=== PATIENT | female | born 1990 | race American Indian/Alaskan Native ===

== ENCOUNTER 2019-05-20 06:12 | Observation (INO) | payer SELFPAY ==
[2019-05-20] MEDS ORDERED: ZOFRAN IV ONE (06:29)
[2019-05-20] MEDS ORDERED: NACL 0.9% 1000 ML 1,000 ML IV ONE (06:29)
--- NOTE | 2019-05-20 06:34 | Emergency Department Report ---
ED General Adult HPI - General Chief complaint: Abdominal Pain Stated complaint: SEIZURES WITH Time Seen by Provider: 05/20/19 06:22 Source: patient, EMS (verbal report received from EMS. EMS records not available at the time of chart dictation.), RN notes reviewed Mode of arrival: Stretcher Limitations: Other (patient laying in stretcher and appears to be anxious, and is a poor historian) - History of Present Illness Initial comments: This is a 29-year-old female. This patient is not known to this provider previously. Reportedly, this is her second left eye and . Reportedly, the patient has a history of "seizures,", only with . The patient indicates she was seen at [facility] yesterday, and reports having had an ultrasound yesterday. Apparently, the patient had 11 separate convulsive episodes today, nontraumatic, while in bed, I demonstrates with EMS. Apparently, her significant other contacted 911. EMS reports that the patient was shaking in the field, however, they report that the shaking stops when the patient closed her eyes. In addition, apparently in the field, the patient will respond to voluntary commands. In the emergency room, the patient complains of mild diffuse abdominal cramping. She has positive nausea. The patient states that she does not have a headache, neck pain, chest pain, shortness of breath. The patient states she is not homicidal or suicidal. The patient reports she does not use recreational drugs. The patient reports that she is not feeling stressed out. The patient states that she only has "seizures" during . As per patient's significant other, she had MRI, EEG done at [facility], 5 years ago. She does not currently have an PAPER CUP MACHINE TENDER. She is not seeing a high offender job retention specialist, and she is not taking any seizure medicines at this time.. -: Sudden Location: pelvis Quality: aching Consistency: intermittent Improves with: none Worsens with: none Associated Symptoms: nausea/vomiting, seizure - Related Data Home Medications Medication Instructions Recorded Confirmed Last Taken No Known Home Medications [No 05/20/19 05/20/19 Unknown Reported Home Medications] Allergies Allergy/AdvReac Type Severity Reaction Status Date / Time No Known Allergies Allergy Unverified 05/20/19 06:49 ED Review of Systems ROS: Stated complaint: SEIZURES WITH Other details as noted in HPI Constitutional: malaise. denies: fever Eyes: denies: eye discharge ENT: denies: epistaxis Respiratory: denies: cough Cardiovascular: denies: syncope Gastrointestinal: vomiting Genitourinary: denies: dysuria Musculoskeletal: denies: back pain Skin: denies: lesions Neurological: weakness Psychiatric: denies: suicidal thoughts ED Past Medical Hx - Medications Home Medications: Home Medications Medication Instructions Recorded Confirmed Last Taken Type No Known Home Medications [No 05/20/19 05/20/19 Unknown History Reported Home Medications] ED Physical Exam - General General appearance: alert, anxious, in distress - Head Head exam: Present: atraumatic, normocephalic - Eye Eye exam: Present: normal appearance, PERRL, EOMI - ENT ENT exam: Present: normal exam, normal orophraynx, mucous membranes moist, normal external ear exam - Neck Neck exam: Present: normal inspection, full ROM. Absent: tenderness, meningismus - Respiratory Respiratory exam: Present: normal lung sounds bilaterally. Absent: respiratory distress - Cardiovascular Cardiovascular Exam: Present: normal rhythm, tachycardia, normal heart sounds. Absent: systolic murmur, diastolic murmur, rubs, gallop - GI/Abdominal GI/Abdominal exam: Present: soft. Absent: distended, tenderness, guarding, rebound, rigid, pulsatile mass - Extremities Exam Extremities exam: Present: normal inspection, full ROM, other (2+ pulses noted in the bilateral upper, lower extremities. There is no long bony tenderness. The pelvis is stable. Muscular compartments are soft. There is no redness, pus, streaking or crepitus noted.). Absent: pedal edema, joint swelling, calf tenderness - Back Exam Back exam: Present: normal inspection, full ROM. Absent: tenderness, CVA tenderness (R), CVA tenderness (L), paraspinal tenderness, vertebral tenderness - Neurological Exam Neurological exam: Present: alert, oriented X3, other (Extraocular movements are intact bilaterally. There is no facial droop. The tongue is midline. Patient speaking in full complete sentences. There is no dysphonia. Hearing is grossly intact bilaterally. Shoulder shrug is intact bilaterally. 5/5 strength bilateral upper, lower extremities. Sensation is intact to light touch bilateral upper, lower extremities.). Absent: motor sensory deficit - Psychiatric Psychiatric exam: Present: anxious - Skin Skin exam: Present: warm, dry, intact, normal color. Absent: rash ED Course Vital Signs 05/20/19 05/20/19 05/20/19 06:18 06:20 06:22 Temperature 98.9 F Pulse Rate 96 H 85 93 H Respiratory 24 8 L 20 Rate Blood Pressure 118/62 Blood Pressure [Left] O2 Sat by Pulse 99 95 Oximetry 05/20/19 05/20/19 05/20/19 06:30 06:41 06:51 Temperature Pulse Rate 83 89 71 Respiratory 11 L 20 12 Rate Blood Pressure 110/73 110/73 124/78 Blood Pressure [Left] O2 Sat by Pulse 96 99 97 Oximetry 05/20/19 05/20/19 05/20/19 07:01 07:11 07:21 Temperature Pulse Rate 84 86 79 Respiratory 15 12 18 Rate Blood Pressure 124/78 86/66 86/66 Blood Pressure [Left] O2 Sat by Pulse 96 98 98 Oximetry 05/20/19 05/20/19 05/20/19 07:30 07:41 07:51 Temperature Pulse Rate 67 66 75 Respiratory 9 L 22 11 L Rate Blood Pressure 115/77 115/77 86/66 Blood Pressure [Left] O2 Sat by Pulse 98 98 99 Oximetry 05/20/19 05/20/19 05/20/19 08:01 08:11 08:21 Temperature Pulse Rate 73 92 H 82 Respiratory 12 13 18 Rate Blood Pressure 86/66 86/66 113/71 Blood Pressure [Left] O2 Sat by Pulse 99 100 100 Oximetry 05/20/19 05/20/19 05/20/19 08:31 08:32 08:41 Temperature Pulse Rate 69 88 84 Respiratory 18 16 20 Rate Blood Pressure 113/71 135/103 Blood Pressure 113/71 [Left] O2 Sat by Pulse 98 96 100 Oximetry 05/20/19 08:51 Temperature Pulse Rate 69 Respiratory 15 Rate Blood Pressure 114/78 Blood Pressure [Left] O2 Sat by Pulse 98 Oximetry - Reevaluation(s) Reevaluation #1: 05/20/19 06:34 Differential diagnosis, including but not limited to: Seizure, pseudoseizure, , electrolyte derangement, occult cannabis use Assessment and plan: 29-year-old female who reportedly has history of seizures only while . However, she indicates she is not taking antiepileptic drug therapy, and to her history and physical, her convulsions and movements appear to be voluntary and controlled in nature. Suspect conversion disorder. The patient is afebrile with reassuring vital signs, and protecting her airway at this time. She has a nonfocal motor and neurologic examination, and in my pain does not require CT scan of the brain at this time. We will check basic laboratory studies, ultrasound, urinalysis, urine drug screen, EKG, and obtain neurology consultation. Reportedly, the patient had 11 CONVULSIVE events prior to arrival to the emergency room. Reevaluation #2: 05/20/19 06:44 Ultrasound confirms intrauterine , heart rate noted. Discussed with neurology on-call, Dr. Vogel, recommends admission to the hospital for repeat MRI, EEG. Recommends no initiation of anticonvulsant therapy at this time, which I agree with. Recommends inpatient neurology consult, which I will defer to the inpatient team. Patient does not have an acute obstetrics emergency at this time, however, we will discuss with PAPER CUP MACHINE TENDER on-call. Reevaluation #3: 05/20/19 07:17 Discussed with obstetrics section plotter operator, Dr. Reed, who states that [facility] is available for consultation, and indicates that Dr. Peng may be contacted if inpatient team has any questions pertaining to patient's first trimester management. Reevaluation #4: 05/20/19 08:12 Patient had a convulsive event, terminated with Benadryl. Hospital physician, Dr. Navarro to admit ED Medical Decision Making - Lab Data Result diagrams: 05/20/19 07:06 05/20/19 07:06 Vital Signs 05/20/19 06:22 Temperature 98.9 F Pulse Rate 93 H Respiratory 20 Rate Blood Pressure 118/62 O2 Sat by Pulse 95 Oximetry - EKG Data -: EKG Interpreted by Nd EKG shows normal: sinus rhythm, axis, intervals, QRS complexes, ST-T waves - EKG Data When compared to previous EKG there are: previous EKG unavailable 05/20/19 06:45 Sinus rhythm, 71 bpm, normal axis, QTC within normal limits, normal EKG, motion artifact, there is no prior for comparison, the EKG is not consistent with ST elevation myocardial infarction. - Radiology Data Radiology results: pending, report reviewed, image reviewed Ordering Physician: ELIUD NUNEZ MD Date of Service: 05/20/19 Procedure(s): US OB <= 14 weeks fetus Accession Number(s): [id number] cc: ELIUD NUNEZ MD OB ultrasound. 05/20/2019. HISTORY: . Seizure. FINDINGS: Imaging was performed transabdominally. The uterus measures 8.4 x 5.9 x 7.2 cm. A single viable intrauterine is dated 7 weeks 0 days. heart tones are 155 bpm. No abnormality is identified. Right ovary measures 1.8 x 1.3 x 1.4 cm. Left ovary measures 2.1 x 1.4 x 1.9 cm. Both ovaries contain flow. IMPRESSION: Early viable intrauterine . Signer Name: Rio Sainz MD Signed: 05/20/2019 7:05 AM Workstation Name: [id number] Transcribed By: ES Dictated By: Rio Sainz MD Electronically Authenticated By: Rio Sainz MD Signed Date/Time: 05/20/19 0705 Critical care attestation.: If time is entered above; I have spent that time in minutes in the direct care of this critically ill patient, excluding procedure time. ED Disposition Clinical Impression: , Convulsive disorder Disposition: [id number] OP ADMIT IP TO THIS HOSP Is pt being admited?: Yes Does the pt Need Aspirin: No Condition: Good
--- NOTE | 2019-05-20 07:09 | Ultrasound Report ---
OB ultrasound. 05/20/2019. HISTORY: . Seizure. FINDINGS: Imaging was performed transabdominally. The uterus measures 8.4 x 5.9 x 7.2 cm. A single vi able intrauterine is dated 7 weeks 0 days. heart tones are 155 bpm. No abnormality is identified. Right ovary measures 1.8 x 1.3 x 1.4 cm. Left ovary measures 2.1 x 1.4 x 1.9 cm. Both ovaries contain flow. IMPRESSION: Early viable intrauterine . Signer Name: Rio Sainz MD Signed: 05/20/2019 7:05 AM Workstation Name: [id number]
[2019-05-20 07:29] LABS: Hematocrit 36.9 % (30.3-42.9); Hemoglobin 12.9 gm/dl (10.1-14.3); Mean Corpuscular HGB Conc 35 % (30-34); Mean Corpuscular Volume 94 fl (79-97); Platelet Count 265 K/mm3 (140-440); Red Blood Count 3.94 M/mm3 (3.65-5.03); Red Cell Distribution Width 13.1 % (13.2-15.2)
[2019-05-20] MEDS ORDERED: BENADRYL ONE (07:42)
[2019-05-20 07:44] LABS: Alanine Aminotransferase 12 units/L (7-56); BUN/Creatinine Ratio 18; Blood Urea Nitrogen 9 mg/dL (7-17); Calcium 8.8 mg/dL (8.4-10.2); Hemolysis Index 3
[2019-05-20] MEDS ORDERED: BENADRYL IV ONE (07:46)
[2019-05-20 08:08] LABS: Bacteria,Urine 1+ /HPF (Negative); Bilirubin,Urine NEG (Negative); Blood,Urine NEG (Negative); Color,Urine Yellow (Yellow); Mucus,Urine 3+ /HPF; Urobilinogen,Urine < 2.0 mg/dL (<2.0)
[2019-05-20 08:11] LABS: Amphetamine Screen,Urine PRESUMPTIVE NEGATIVE; Benzodiazepines Screen,Urine PRESUMPTIVE NEGATIVE; Cocaine Screen,Urine PRESUMPTIVE NEGATIVE; Methadone Screen,Urine PRESUMPTIVE NEGATIVE; Opiate Screen,Urine PRESUMPTIVE NEGATIVE
[2019-05-20 08:26] LABS: Cannabinoid Screen,Urine PRESUMPTIVE POSITIVE
--- NOTE | 2019-05-20 09:58 | History and Physical Report ---
History of Present Illness Date of examination: 05/20/19 Date of admission: 05/20/19 08:12 Chief complaint: Witnessed seizures, abdominal pain and early History of present illness: 29-year-old female patient with no significant past medical history not on any medications with the 7 weeks of early presented to the emergency room with witnessed seizure . She reports that she had seizure activity during her first 5 years ago, no history of seizures post Patient's fianc reports that she had multiple episodes of seizures yesterday and today. Patient also complains of mild abdominal pain and cramping as well as nausea and vomiting Denies any fever no headache. Patient had seizures in the emergency room as well as in the medical floor. At the time of my evaluation patient patient complains of mild abdominal cramping, with mild nausea and vomiting No vaginal bleeding or vaginal discharge Patient denies chest pain or shortness of breath Past History Past Medical History: seizures (procedures during her first 5 years ago) Past Surgical History: No surgical history Social history: denies: smoking, alcohol abuse, prescription drug abuse Family history: hypertension Medications and Allergies Allergies Allergy/AdvReac Type Severity Reaction Status Date / Time No Known Allergies Allergy Unverified 05/20/19 06:49 Home Medications Medication Instructions Recorded Confirmed Last Taken Type No Known Home Medications [No 05/20/19 05/20/19 Unknown History Reported Home Medications] Active Meds: Active Medications Sodium Chloride (Nacl 0.9% 1000 Ml) 1,000 mls @ 75 mls/hr IV DIRECT RUTH ANN Lorazepam (Ativan) 2 mg IV Q4H PRN PRN Reason: Seizures Ondansetron HCl (Zofran) 4 mg IV Q4H PRN PRN Reason: Nausea And Vomiting Review of Systems Constitutional: weakness, no weight loss, no weight gain, no fever, no chills Ears, nose, mouth and throat: no nasal congestion, no nasal discharge Cardiovascular: no chest pain, no palpitations, no shortness of breath Respiratory: no cough, no hemoptysis Gastrointestinal: abdominal pain, nausea, vomiting Genitourinary Female: no flank pain, no dysuria Musculoskeletal: no myalgias, no arthritis Integumentary: no rash, no lesions Neurological: no weakness, no parathesias Psychiatric: no anxiety, no depression Endocrine: no cold intolerance, no heat intolerance Hematologic/Lymphatic: no easy bruising, no easy bleeding Allergic/Immunologic: no urticaria, no allergic rhinitis Exam - Constitutional Vitals: Temp Pulse Resp BP Pulse Ox 98.9 F 88 16 113/71 96 05/20/19 06:22 05/20/19 08:32 05/20/19 08:32 05/20/19 08:32 05/20/19 08:32 General appearance: Present: mild distress, well-nourished - EENT Eyes: Present: PERRL, EOM intact - Neck Neck: Present: supple, normal ROM - Respiratory Respiratory effort: normal Respiratory: bilateral: diminished, negative: rales, rhonchi, wheezing - Cardiovascular Rhythm: regular Heart Sounds: Present: S1 & S2 - Extremities Extremities: no ischemia, No edema - Abdominal General gastrointestinal: Present: soft, non-tender, non-distended, normal bowel sounds - Integumentary Integumentary: Present: clear, warm - Musculoskeletal Musculoskeletal: strength equal bilaterally, generalized weakness - Psychiatric Psychiatric: appropriate mood/affect, cooperative - Neurologic Neurologic: moves all extremities, other (slow speech) Results - Labs CBC & Chem 7: 05/20/19 07:06 05/20/19 07:06 Labs: Abnormal lab results 05/20/19 05/20/19 05/20/19 Range/Units 07:06 07:06 07:06 MCH 33 H (28-32) pg MCHC 35 H (30-34) % RDW 13.1 L (13.2-15.2) % Chloride 107.3 H (98-107) mmol/L Creatinine 0.5 L (0.7-1.2) mg/dL Glucose 148 H (65-100) mg/dL HCG, Quant 57826 H (0-4) mIU/mL Ur Specific [place] (1.003-1.030) Salicylates (2.8-20.0) mg/dL Acetaminophen (10.0-30.0) ug/mL 05/20/19 05/20/19 05/20/19 Range/Units 07:06 07:06 07:45 MCH (28-32) pg MCHC (30-34) % RDW (13.2-15.2) % Chloride (98-107) mmol/L Creatinine (0.7-1.2) mg/dL Glucose (65-100) mg/dL HCG, Quant (0-4) mIU/mL Ur Specific [place] 1.032 H (1.003-1.030) Salicylates < 0.3 L (2.8-20.0) mg/dL Acetaminophen < 5.0 L (10.0-30.0) ug/mL Assessment and Plan --Witnessed Seizures; Seizure precautions, Ativan as needed EEG, neurology consult Neuro workup with CT head /MRI if needed. No Driving until cleared by DMV/primary care physician --Possible psychogenic nonepileptic seizures; ER Physician consulted psych, neurology evaluation Following evaluation and recommendation --7 weeks ; OB consulted Management per OB --History of marijuana use; Patient advised to quit recreational drug use --DVT prophylaxis; SCDs Monitor closely and adjust management as needed Follow neuro workup ,Neurology, psych AND OB evaluation and recommendations Plan of care is reviewed with the patient, her mother and her fianc At the bedside, I also discussed with the patient's nurse Disposition; follow neuro workup, follow neuro, psych, OB evaluation and recommendations Possible discharge home tomorrow if workup is negative
[2019-05-20] MEDS ORDERED: ATIVAN IV PRN ×2 (10:30→18:10)
[2019-05-20] MEDS: ZOFRAN IV PRN ×2 (10:34→17:26)
[2019-05-20] MEDS: NACL 0.9% 1000 ML 1,000 ML IV SCH (10:34)
--- NOTE | 2019-05-20 11:19 | Consultation ---
History of Present Illness - Reason for Consult Consult date: 05/20/19 Reason for consult: Mental Health Evaluation Requesting physician: ELIUD NUNEZ - Chief Complaint Chief complaint: "Please come back tomorrow" - History of Present Psychiatric Illness 29 y.o. AA female who is currently presented to the ER for convulsions. Psychiatry was consulted to see the patient for possible conversion do. Today the patient was calm, but asked to been in 24 hours. The patient's family members stated that the patient was in pain. No gestures of SI/Hi's. Medications and Allergies Allergies Allergy/AdvReac Type Severity Reaction Status Date / Time No Known Allergies Allergy Unverified 05/20/19 06:49 Home Medications Medication Instructions Recorded Confirmed Last Taken Type No Known Home Medications [No 05/20/19 05/20/19 Unknown History Reported Home Medications] Active Meds: Active Medications Sodium Chloride (Nacl 0.9% 1000 Ml) 1,000 mls @ 75 mls/hr IV DIRECT RUTH ANN Last Admin: 05/20/19 10:34 Dose: 75 mls/hr Documented by: Lorazepam (Ativan) 2 mg IV Q4H PRN PRN Reason: Seizures Ondansetron HCl (Zofran) 4 mg IV Q4H PRN PRN Reason: Nausea And Vomiting Last Admin: 05/20/19 10:34 Dose: 4 mg Documented by: Past psychiatric history - Past Medical History Past Medical History: other (Currently ) Past Surgical History: Other (Unable to obtain ) - past Psychiatric treatment and history psychiatric treatment history: Unable to obtain a psy and fam psy hx. - Social History Social history: other (Unable to obtain ) Mental Status Exam - Vital signs Last Vital Signs Temp 98.9 F 05/20/19 06:22 Pulse 88 05/20/19 08:32 Resp 16 05/20/19 08:32 BP 113/71 05/20/19 08:32 Pulse Ox 96 05/20/19 08:32 - Exam Narrative exam: Unable to complete the MSE at this time. Results Result Diagrams: 05/20/19 07:06 05/20/19 07:06 Abnormal lab results 05/20/19 05/20/19 05/20/19 Range/Units 07:06 07:06 07:06 MCH 33 H (28-32) pg MCHC 35 H (30-34) % RDW 13.1 L (13.2-15.2) % Chloride 107.3 H (98-107) mmol/L Creatinine 0.5 L (0.7-1.2) mg/dL Glucose 148 H (65-100) mg/dL HCG, Quant 28321 H (0-4) mIU/mL Ur Specific [place] (1.003-1.030) Salicylates (2.8-20.0) mg/dL Acetaminophen (10.0-30.0) ug/mL 05/20/19 05/20/19 05/20/19 Range/Units 07:06 07:06 07:45 MCH (28-32) pg MCHC (30-34) % RDW (13.2-15.2) % Chloride (98-107) mmol/L Creatinine (0.7-1.2) mg/dL Glucose (65-100) mg/dL HCG, Quant (0-4) mIU/mL Ur Specific [place] 1.032 H (1.003-1.030) Salicylates < 0.3 L (2.8-20.0) mg/dL Acetaminophen < 5.0 L (10.0-30.0) ug/mL All other labs normal. Assessment and Plan Assessment and plan: Impression: Today the patient asked to be seen in 24 hours. Recommendation/Plan: Attempt the assess the patient in 24 hours[address] Will staff with Dr Lola Cabrera.
[2019-05-20] MEDS ORDERED: MORPHINE IV ONE (12:15)
--- NOTE | 2019-05-20 12:49 | Consultation ---
History of Present Illness Consult date: 05/20/19 Reason for Consult: Possible seizures Chief complaint: Possible seizures History of present illness: Patient is a 29-year-old woman with no significant past medical history, however is currently 7 weeks . She presents with seizures, and has reportedly had approximately 11 seizure-like episodes prior to presenting to the ER. Episodes were also witnessed in the emergency room by the ER team, and were noted to be atypical for years. Patient reports that she has seizures during each . Her first was about 5 years ago, and she reportedly had seizures at that time. 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 Patient states that she was also told that she had a "blood clot in the brain" at that time, and was being given "injections in her abdomen to treat the blood clot." She states that she was treated at the [facility] as well as [facility] at that time. Patient had a second approximately 2 years ago, and she reportedly had 2 important that she was once again having seizures. Denies any increased amounts of stress currently. Past History Past Medical History: other (Currently ) Social history: no significant social history, lives with family Family history: no significant family history Medications and Allergies Allergies Allergy/AdvReac Type Severity Reaction Status Date / Time No Known Allergies Allergy Unverified 05/20/19 06:49 Home Medications Medication Instructions Recorded Confirmed Last Taken Type No Known Home Medications [No 05/20/19 05/20/19 Unknown History Reported Home Medications] Active Meds: Active Medications Famotidine (Pepcid) 20 mg IV BID RUTH ANN Sodium Chloride (Nacl 0.9% 1000 Ml) 1,000 mls @ 75 mls/hr IV DIRECT RUT HANN Last Admin: 05/20/19 10:34 Dose: 75 mls/hr Documented by: Lorazepam (Ativan) 2 mg IV Q4H PRN PRN Reason: Seizures Morphine Sulfate (Morphine) 1 mg IV Q4H PRN PRN Reason: Pain, Moderate (4-6) Ondansetron HCl (Zofran) 4 mg IV Q4H PRN PRN Reason: Nausea And Vomiting Last Admin: 05/20/19 10:34 Dose: 4 mg Documented by: Review of Systems All systems: negative Neurological: convulsions Physical Examination - Vital Signs Vital Signs: Vital Signs Temp Pulse Resp BP Pulse Ox 98.9 F 93 H 20 118/62 95 05/20/19 06:22 05/20/19 06:22 05/20/19 06:22 05/20/19 06:22 05/20/19 06:22 - Physical Exam Narrative exam: Patient was noted to have a convulsion while examining the patient. During the event, patient's eyes were closed, she had mild tremulous movements of the entire body, as well as mild thrusting of the pelvis. No loss of bowel or nathan dder control were noted during the event. Patient returned to baseline immediately, and was not noted to have any confusion afterwards. - Constitutional General appearance: comfortable - EENT EENT: Present: ATNC, PERRL, mucous membranes moist, hearing intact, vision intact - Respiratory Respiratory: Present: lungs clear, normal breath sounds - Cardiovascular Cardiovascular: Present: regular rate, normal S1, normal S2 Extremities: Present: no peripheral edema bilatateraly, no clubbing, cyanosis - Gastrointestinal Gastrointestinal: Present: normoactive bowel sounds, soft, non-tender - Integumentary Integumentary: Present: normal - Neurologic Cranial nerve examination: PERRL, EOMI, VFF, V1/V2/V3 grossly intact, face symmetric, tongue midline, intact shoulder shrug Speech examination: intact Sensorimotor examination: intact Detailed motor examination: full strength in all gilma Motor examination - right side: 5/5: biceps, triceps, wrist flexion, wrist extension, fusion juncture grinder, hip flexors, knee extensors, dorsiflexion, toe extension (EHL), plantarflexion Motor examination - left side: 5/5: biceps, triceps, wrist flexion, wrist extension, fusion juncture grinder, hip flexors, knee extensors, dorsiflexion, toe extension (EHL), plantarflexion Detailed sensory examination: intact, light touch Reflexes: 2+: ankle, bicep, knee, tricep Cerebellar examination: other (bilaterally intact to finger to nose and heel to bah) - Musculoskeletal Musculoskeletal: Present: no fluid collection, no pain, normal range of motion - Psychiatric Psychiatric: Present: mood/affect appropriate Results - Laboratory Findings CBC and BMP: 05/20/19 07:06 05/20/19 07:06 Abnormal Lab Findings: Abnormal Labs 05/20/19 05/20/19 05/20/19 07:06 07:06 07:06 MCH 33 H MCHC 35 H RDW 13.1 L Chloride 107.3 H Creatinine 0.5 L Glucose 148 H HCG, Quant 04345 H Ur Specific [place] Salicylates Acetaminophen 05/20/19 05/20/19 05/20/19 07:06 07:06 07:45 MCH MCHC RDW Chloride Creatinine Glucose HCG, Quant Ur Specific [place] 1.032 H Salicylates < 0.3 L Acetaminophen < 5.0 L Assessment and Plan Patient is a 29-year-old woman with no significant past medical history other than pseudoseizures, who is currently 7 weeks , who presents with ulcerative episodes. According the patient's clinical findings, it is possible that she has pseudoseizures, as clinically, her episodes do not appear to be seizures. Of note, her eyes were closed during the event, she was noted to have pelvic thrusting, no loss of bowel or bladder control during the event, no significant postictal period noted after the event. Further, the patient reportedly has a previous history of pseudoseizures in the past. Patient states further that she had a previous blood in the brain, and this will be investigated further. 1. Possible psychogenic nonepileptic seizures vs. seizures: - Check EEG - Will not start patient on AED at this time, until EEG completed. - Discussed risks of AEDs during , as they can affect fetus. Patient agreed that she would not like to start AED at this point. - No driving until cleared by DMV/DPS per local driving laws. Patient understood and accepted this. - Seizure precautions discussed with patient. - Will check MRI brain and MRV brain, as patient reportedly has history of "blood clot in the brain". Attempted to contact patient's previous neurologist at [facility], however was unable to discuss patient's previous history and management with them. - Will sign off, as I'm not covering the neurology service over the weekend. Recommend consulting neurologist covering the weekend tomorrow, as patient will require further management. Casper Linares MD Neurology
[2019-05-20] MEDS: PEPCID IV SCH ×2 (13:09→21:17)
--- NOTE | 2019-05-20 17:12 | Magnetic Resonance Report ---
MRI BRAIN WITHOUT CONTRAST INDICATION / CLINICAL INFORMATION: possible seizure. TECHNIQUE: Multiplanar, multisequence MR images of the brain were obtained. COMPARISON: None available. FINDINGS: BRAIN / INTRACRANIAL CONTENTS: No acute ischemia, acute hemorrhage, mass effect, midline shift, or hy drocephalus. No chronic infarct or significant atrophy. No significant demyelinating changes. There is a developmental cavum septum pellucidum and cavum vergae (developmental variants). There is a smal l focus of decreased T2 signal with associated chronic hemosiderin deposition in the left posterior p arietal mid convexity juxtacortical white matter suggestive of a small cavernous mild formation. CRANIOCERVICAL JUNCTION: No significant abnormality. VASCULAR FLOW-VOIDS: No significant abnormality. ORBITS: No significant abnormality of visualized orbits. SINUSES / MASTOIDS: Mild mucosal thickening in the right maxillary sinus. ADDITIONAL FINDINGS: None. IMPRESSION: 1. No acute intracranial abnormality. No findings to explain seizures or sequela of seizures. 2. 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 Signer Name: Emmett Sweeney MD Signed: 05/20/2019 5:08 PM Workstation Name: [id number]
--- NOTE | 2019-05-20 17:16 | Magnetic Resonance Report ---
MRA HEAD WITHOUT CONTRAST INDICATION / CLINICAL INFORMATION: possible seizure. TECHNIQUE: Routine MRA of the head is performed. 3-D/MIP reformats postprocessed. COMPARISON: None available. FINDINGS: Intracranial vertebral arteries: No significant abnormality. Basilar artery: No significant abnormality. Posterior cerebral arteries: No significant abnormality. Intracranial internal carotid arteries: No significant abnormality. Anterior cerebral arteries: No significant abnormality. Middle cerebral arteries: No significant abnormality. Additional findings: None. IMPRESSION: 1. No significant stenosis, large vessel occlusion, or intracranial aneurysm identified in the intrac ranial arteries. Signer Name: Emmett Sweeney MD Signed: 05/20/2019 5:11 PM Workstation Name: [id number]
--- NOTE | 2019-05-20 17:25 | Magnetic Resonance Report ---
MRV BRAIN WITHOUT CONTRAST HISTORY: Possible seizure COMPARISON: None. TECHNIQUE: Multiplanar, multi sequential MRV images of the intracranial venous circulation obtained w ithout contrast. MIP reformats were post-processed. CONTRAST: None. FINDINGS: Superior sagittal sinus: No significant flow abnormality. Inferior sagittal sinus: No significant flow abnormality. Straight sinus: No significant flow abnormality. Transverse sinuses: No significant flow abnormality Sigmoid sinuses: No significant flow abnormality Additional Findings: None IMPRESSION: 1. No significant abnormality of the intracranial venous circulation. Signer Name: Emmett Sweeney MD Signed: 05/20/2019 5:21 PM Workstation Name: [id number]
[2019-05-20] MEDS: MORPHINE IV PRN (21:18)
--- NOTE | 2019-05-20 23:59 | Electroencephalogram Report ---
Electroencephalogram EEG Date of exam: 05/20/19 History: Patient is a 29-year-old woman with no significant past medical history other than pseudoseizures, who is currently 7 weeks , who presents with convulsive episodes. Description: DESCRIPTION OF THE PROCEDURE: Electrodes were applied using paste technique in positions dictated by International 10-20 system of placement. In addition to EEG data EKG and eye movements were recorded. DESCRIPTION OF ACTIVITIY: At the onset of this recording, the patient is lying supine. In the background we note a 9 Hz alpha posterior dominant rhythm. There is normal attenuation of the background rhythm with eye opening. Additional low voltage beta activity occurs symmetrically at the anterior head regions bilaterally. There are no asymmetries in amplitude or frequency between hemispheres. Intermittent photic stimulation was not performed. Hyperventilation was not performed. EKG lead showed a normal sinus rhythm. EEG Impression: 1) Normal awake activity. 2) No epileptiform activity or seizures were noted 3) Muscle artifact noted 3) Patient had a convulsive episode during recording, however no seizures were noted during this episode on EEG. Only muscle artifact was noted during the recording of the event. CLINICAL INTERPRETATION: This routine video EEG, performed during wakefulness is normal. Convulsive episode that occurred during recording was not a seizure, and is indicative of psyschogenic non-epileptic seizures. [Note that a normal routine EEG does not rule out of the diagnosis of epilepsy. Should there be continued suspicion of seizures, a repeat study of longer dura tion can be considered.]
[2019-05-21] MEDS: ZOFRAN IV PRN ×3 (00:20→08:17)
[2019-05-21] MEDS: NACL 0.9% 1000 ML 1,000 ML IV SCH (04:14)
[2019-05-21] MEDS: MORPHINE IV PRN (04:14)
[2019-05-21] MEDS ORDERED: MORPHINE IV PRN (06:24)
[2019-05-21] MEDS: PEPCID IV SCH (10:22)
--- NOTE | 2019-05-21 11:24 | Discharge Summary ---
Providers - Providers Date of Admission: 05/20/19 08:12 Date of discharge: 05/21/19 Attending physician: KAUR MATAMOROS 05/20/19 06:23 Consult to Physician [CONS] Urgent Comment: Consulting Provider: LUCI TALBOT Physician Instructions: Reason For Exam: sz vs pseudo sz 05/20/19 06:24 Consult to Physician [CONS] Urgent Comment: NURSE SANJEEV WILKS W/DR ALARCON @0811 Consulting Provider: DAWIT KING Physician Instructions: Reason For Exam: W SZ 05/20/19 06:46 Consult to Mental Health [CONS] Urgent Reason For Exam: "sz" while suspect conversion disorder Place consult to:: psych mobile phone salesperson Notified:: awaiting call back 05/20/19 09:47 Consult to Physician [CONS] Routine Comment: Consulting Provider: MINDY LORA Physician Instructions: Reason For Exam: Seizures/?pseudo seizures [facility] Good Hospital course: 29-year-old female patient with no significant past medical history not on any medications with the 7 weeks of early presented to the emergency room with witnessed seizure . She reports that she had seizure activity during her first 5 years ago, no history of seizures post . She was evaluated by daily Neurontin the ER and recommended to admit the patient for further workup. 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; Placed on Seizure precautions, Ativan as needed s/p EEG w/o any epileptic activities, neurology consulted and recommended no AED Normal MRI/MRA brain No Driving until cleared by DMV/primary care physician ER Physician consulted psych - outpt f/u --7 weeks ; outpt f/u, US showed viable fetus --History of marijuana use; Patient advised to quit recreational drug use Disposition: DC-01 TO HOME OR SELFCARE Time spent for discharge: 34 minutes Core Measure Documentation - Palliative Care Palliative Care/ Comfort Measures: Not Applicable - Core Measures Any of the following diagnoses?: none Exam - Constitutional Vitals: Temp Pulse Resp BP Pulse Ox 98.5 F 53 L 18 95/68 100 05/21/19 05:30 05/21/19 05:30 05/21/19 05:30 05/21/19 05:30 05/21/19 05:30 General appearance: Present: no acute distress, well-nourished - EENT Eyes: Present: PERRL ENT: hearing intact, clear oral mucosa - Neck Neck: Present: supple, normal ROM - Respiratory Respiratory effort: normal Respiratory: bilateral: CTA - Cardiovascular Heart Sounds: Present: S1 & S2. Absent: rub, click - Extremities Extremities: pulses symmetrical, No edema Peripheral Pulses: within normal limits - Abdominal General gastrointestinal: Present: soft, non-tender, non-distended, normal bowel sounds - Integumentary Integumentary: Present: clear, warm, dry - Musculoskeletal Musculoskeletal: gait normal, strength equal bilaterally - Psychiatric Psychiatric: appropriate mood/affect, intact judgment & insight - Neurologic Neurologic: CNII-XII intact, moves all extremities Plan Activity: no driving until cleared by PCP Weight Bearing Status: Non-Weight Bearing Diet: regular Follow up with: SHERIF FOX MD [Primary Care Provider] - 3-5 Days JOSEPH ALARCON MD [Staff Physician] - 7 Days
--- NOTE | 2019-05-21 13:11 | Consultation ---
History of Present Illness Consult date: 05/20/19 Requesting physician: ELIUD NUNEZ Reason for consult: other ( , Seizures ) History of present illness: Pt is a 29 year old -[place] female LMP 03/21/19 at 7w1d by 7 wk ultrasound who presented initially to the ED with seizures. Since admission, she has had an MRI and EEG with diagnosis of psychogenic, non-epileptic pseudoseizures. She reports these episodes occurred in her prior as well and stop as soon as she delivers. She also reports a h/o hyperemesis and GERD in her prior and a "blood clot in the brain" requiring anticoagulation in her previous . She has not sought care yet, but reports Dr Tovar at [facility] is her Line Maintenance Technician. She denies vaginal bleeding but does report lower abdominal pain which she mentions occurred in her prior as well. Past History Past Medical History: no pertinent history, GERD Past Surgical History: D&C Social history: other (Pt and fiance disagree about continuing this which is causing significant stress ) - Obstetrical History Expected Date of Delivery: 01/06/20 Actual Gestation: 7 Week(s) 1 Day(s) : 4 Para: 1 Hx # Term Pregnancies: 0 Number of Pregnancies: 1 Spontaneous Abortions: 0 Induced : 2 Number of Living Children: 1 Medications and Allergies Allergies Allergy/AdvReac Type Severity Reaction Status Date / Time No Known Allergies Allergy Unverified 05/20/19 06:49 Home Medications Medication Instructions Recorded Confirmed Last Taken Type Pantoprazole [Protonix] 40 mg PO QDAY #14 tablet 05/21/19 Unknown Rx Promethazine [Phenergan] 25 mg PO Q6HR PRN #10 tab 05/21/19 Unknown Rx Active Meds: Active Medications Famotidine (Pepcid) 20 mg IV BID RUTH ANN Last Admin: 05/21/19 10:22 Dose: 20 mg Documented by: Sodium Chloride (Nacl 0.9% 1000 Ml) 1,000 mls @ 75 mls/hr IV DIRECT RUTH ANN Last Admin: 05/21/19 04:14 Dose: 75 mls/hr Documented by: Morphine Sulfate (Morphine) 1 mg IV Q8H PRN PRN Reason: Pain, Moderate (4-6) Ondansetron HCl (Zofran) 4 mg IV Q4H PRN PRN Reason: Nausea And Vomiting Last Admin: 05/21/19 08:17 Dose: 4 mg Documented by: Review of Systems All systems: negative - Vital Signs Vital signs: Vital Signs Pulse Resp 96 H 24 05/20/19 06:18 05/20/19 06:18 Temp Pulse Resp BP Pulse Ox 98.5 F 53 L 18 95/68 100 05/21/19 05:30 05/21/19 05:30 05/21/19 05:30 05/21/19 05:30 05/21/19 05:30 - Physical Exam Breasts: Positive: deferred Cardiovascular: Regular rate Lungs: Positive: Clear to auscultation Abdomen: Positive: soft, tenderness (mild tenderness in LLQ and RLQ ) Extremities: Positive: normal Results Result Diagrams: 05/20/19 07:06 05/20/19 07:06 All other labs normal. Ultrasound: report reviewed Assessment and Plan A: IUP at 7w1d Pseudoseizures H/o hyperemesis and possible intracranial clot requiring anticoagulation in prior P: This patient has been encouraged to follow up immediately with Dr Tovra, her Line Maintenance Technician to establish care. She should take a vitamin daily. Her records will need to be reviewed to determine need for anticoagulation in this . Thank you for this consult.
[2019-05-21 13:51] VITALS: BP 101/59
--- NOTE | 2019-05-26 09:35 | Consultation ---
This EEG was obtained on awake patient. Occasional drowsy activity is obtained. EEG had two sharp wave episodes during the tracing, which were clinically noted by the computer engineering technician; however, no epileptiform discharges were noted. There is also slight slowing. This may be an epileptiform equivalent. IMPRESSION: Abnormal EEG with slowing and sharp wave equivalents. This may be epileptiform equivalent. Recommend clinical correlation. JOB# [id number] RUDDY/CODEY
== END 2019-05-21 13:56 | disposition home or self-care (01) ==
LOC: ED 06:12 → 3A 08:12
PROVIDERS: ADMIT Internal Medicine; ATTEND Internal Medicine
DX: O99.341 Other mental disorders complicating pregnancy, first trimester (principal); R56.9 Unspecified convulsions; Z3A.01 Less than 8 weeks gestation of pregnancy
CPT/HCPCS: 36415; 70544; 70551; 76801; 80053; 80307; 81001; 82962; 84702; 85027; 86850; 86900; 86901; 87086; 93005; 93010; 95819; 96374; 96375; 96376; 99284; G0378; J1200; J2060; J2270; J2405; J7030; 80320; G0480

== ENCOUNTER 2019-10-11 09:04 | Emergency (ER) | payer MEDICAID ==
[2019-10-11] MEDS ORDERED: FAMOTIDINE 20 MG/2 ML INJ IV ONE (10:24)
[2019-10-11] MEDS ORDERED: ONDANSETRON 4 MG/2 ML INJ IV ONE (10:24)
[2019-10-11] MEDS ORDERED: diphenhydrAMINE 50 MG/ML VIAL IV ONE (10:24)
--- NOTE | 2019-10-11 10:25 | Emergency Department Report ---
ED General Adult HPI - General Chief complaint: Seizure Stated complaint: SEIZURE Time Seen by Provider: 10/11/19 09:29 Source: patient, EMS (EMS records not available at this time for chart dictation or review.), RN notes reviewed, old records reviewed Mode of arrival: Stretcher Limitations: No Limitations - History of Present Illness Initial comments: This is a 29-year-old female. I have evaluated this patient in the past. Patient has a history of psychogenic nonepileptic form seizures, was evaluated at this hospital in 2019, seen by neurology, who recommended that patient has a diagnosis of psychogenic nonepileptic form seizure/pseudoseizure. Patient had negative MRI, negative MRA, and negative EEG. Does not appear that she is on antiepileptic drugs at this time. The patient did not want to be on aed therapy as per prior documentation. She presents to the ER today with a complaint of diffuse abdominal cramping, nausea and vomiting. She's vomited "too many times to count." The patient is a recreational marijuana smoker. She reports occasionally her symptoms are improved with taking a hot bath or hot shower. She makes no complaint of headache, neck pain, chest pain, shortness of breath. She is not homicidal or suicidal. She endorses no urinary symptoms. There is reported no history of trauma. -: Gradual Radiation: abdomen Quality: aching Consistency: constant Improves with: medication - Related Data Previous Rx's Medication Instructions Recorded Last Taken Type Pantoprazole [Protonix] 40 mg PO QDAY #14 tablet 05/21/19 Unknown Rx Promethazine [Phenergan] 25 mg PO Q6HR PRN #10 tab 05/21/19 Unknown Rx Ondansetron [Zofran Odt] 4 mg PO Q8HR #10 tab.rapdis 06/12/19 Unknown Rx Metoclopramide [Reglan] 10 mg PO QID PRN #30 tablet 10/11/19 Unknown Rx Promethazine [Phenergan SUPPOS] 50 mg GA Q6H PRN #15 supp.rect 10/11/19 Unknown Rx Allergies Allergy/AdvReac Type Severity Reaction Status Date / Time No Known Allergies Allergy Unverified 05/20/19 06:49 ED Review of Systems ROS: Stated complaint: SEIZURE Other details as noted in HPI Constitutional: malaise Eyes: denies: eye discharge ENT: denies: congestion Respiratory: denies: wheezing Cardiovascular: denies: syncope Gastrointestinal: abdominal pain, nausea, vomiting Genitourinary: denies: dysuria Musculoskeletal: myalgia Skin: denies: lesions Neurological: weakness Psychiatric: anxiety. denies: homicidal thoughts, suicidal thoughts ED Past Medical Hx - Past Medical History Previous Medical History?: No Hx Seizures: Yes Additional medical history: seizures only when - Surgical History Past Surgical History?: No - Social History Smoking Status: Never Smoker Substance Use Type: Alcohol - Medications Home Medications: Home Medications Medication Instructions Recorded Confirmed Last Taken Type Pantoprazole [Protonix] 40 mg PO QDAY #14 tablet 05/21/19 Unknown Rx Promethazine [Phenergan] 25 mg PO Q6HR PRN #10 tab 05/21/19 Unknown Rx Ondansetron [Zofran Odt] 4 mg PO Q8HR #10 tab.rapdis 06/12/19 Unknown Rx Metoclopramide [Reglan] 10 mg PO QID PRN #30 tablet 10/11/19 Unknown Rx Promethazine [Phenergan SUPPOS] 50 mg GA Q6H PRN #15 supp.rect 10/11/19 Unknown Rx ED Physical Exam - General Limitations: No Limitations General appearance: alert, anxious, in distress, other (patient initially actively vomiting and retching. After haloperidol administration, sleeping comfortably with no distress) - Head Head exam: Present: atraumatic, normocephalic - Eye Eye exam: Present: normal appearance, EOMI. Absent: nystagmus - ENT ENT exam: Present: normal exam, normal orophraynx, mucous membranes moist, normal external ear exam - Neck Neck exam: Present: normal inspection, full ROM. Absent: tenderness, meningismus - Respiratory Respiratory exam: Present: normal lung sounds bilaterally. Absent: respiratory distress - Cardiovascular Cardiovascular Exam: Present: regular rate, normal rhythm, normal heart sounds. Absent: bradycardia, tachycardia, irregular rhythm, systolic murmur, diastolic murmur, rubs, gallop - GI/Abdominal GI/Abdominal exam: Present: soft. Absent: distended, tenderness, guarding, rebound, rigid, pulsatile mass - Extremities Exam Extremities exam: Present: normal inspection, full ROM, other (2+ pulses noted in the bilateral upper and lower extremities. There is no long bony tenderness. The muscular compartments are soft. The pelvis is stable.). Absent: pedal edema, calf tenderness - Back Exam Back exam: Present: normal inspection. Absent: tenderness, CVA tenderness (R), CVA tenderness (L), paraspinal tenderness, vertebral tenderness - Neurological Exam Neurological exam: Present: alert, other (there is no facial droop. The tongue is midline. The extraocular movements are intact bilaterally. Moving 4 extremities spontaneously. Sensation is intact to light touch in 4 extremities spontaneously. Age-appropriate mental status.). Absent: motor sensory deficit - Psychiatric Psychiatric exam: Present: anxious - Skin Skin exam: Present: warm, dry, intact, normal color. Absent: rash ED Course Vital Signs 10/11/19 10/11/19 10/11/19 09:12 11:00 12:21 Temperature 98.0 F Pulse Rate 76 58 L 59 L Respiratory 14 14 Rate Blood Pressure 123/91 Blood Pressure 134/70 121/61 [Left] O2 Sat by Pulse 97 97 Oximetry - Reevaluation(s) Reevaluation #1: 10/11/19 11:41 Differential diagnosis, including but not limited to, GERD, gastritis, hiatal hernia, IBS, cannabinoid hyperemesis syndrome Assessment and plan: 29-year-old female with a history of psychogenic nonepileptic form seizure disorder, with diffuse abdominal pain, nausea and vomiting, reports intermittent relief with hot baths and hot shower, highly suspect cannabinoid hyperemesis syndrome. At the moment, she is sleeping, calm, not actively vomiting, laboratory studies unremarkable. She specifically denied seizures to myself. She was worked up for convulsions last year at this hospital. She had a nonfocal neurologic examination on my initial evaluation. Reevaluation #2: 10/11/19 13:51 Vomiting resolved. Laboratory studies reviewed and appreciated. Patient making multiple requests to leave. Explained need for EKG and urinalysis. EKG unremarkable. Urinalysis appreciated, patient reports she is currently menstruating. Patient left the emergency room prior to receiving her discharge paperwork. 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 ED Medical Decision Making - Lab Data Result diagrams: 10/11/19 09:35 10/11/19 09:35 Vital Signs 10/11/19 10/11/19 10/11/19 09:12 11:00 12:21 Temperature 98.0 F Pulse Rate 76 58 L 59 L Respiratory 14 14 Rate Blood Pressure 123/91 Blood Pressure 134/70 121/61 [Left] O2 Sat by Pulse 97 97 Oximetry Lab Results 10/11/19 10/11/19 10/11/19 Range/Units 09:35 09:35 09:35 WBC 4.8 (4.5-11.0) K/mm3 RBC 4.20 (3.65-5.03) M/mm3 Hgb 13.4 (10.1-14.3) gm/dl Hct 38.9 (30.3-42.9) % MCV 93 (79-97) fl MCH 32 (28-32) pg MCHC 35 H (30-34) % RDW 13.6 (13.2-15.2) % Plt Count 309 (140-440) K/mm3 Sodium 143 (137-145) mmol/L Potassium 3.8 (3.6-5.0) mmol/L Chloride 107.5 H (98-107) mmol/L Carbon Dioxide 21 L (22-30) mmol/L Anion Gap 18 mmol/L BUN 8 (7-17) mg/dL Creatinine 0.6 L (0.7-1.2) mg/dL Estimated GFR > 60 ml/min BUN/Creatinine Ratio 13 % Glucose 147 H (65-100) mg/dL Calcium 9.9 (8.4-10.2) mg/dL Magnesium 1.90 (1.7-2.3) mg/dL Total Bilirubin 0.20 (0.1-1.2) mg/dL AST 22 (5-40) units/L ALT 14 (7-56) units/L Alkaline Phosphatase 64 (35-129) units/L Total Creatine Kinase 163 H (30-135) units/L Total Protein 7.7 (6.3-8.2) g/dL Albumin 4.3 (3.9-5) g/dL Albumin/Globulin Ratio 1.3 % HCG, Quant < 2 (0-4) mIU/mL Urine Color (Yellow) Urine Turbidity (Clear) Urine pH (5.0-7.0) Ur Specific [place] (1.003-1.030) Urine Protein (Negative) mg/dL Urine Glucose (UA) (Negative) mg/dL Urine Ketones (Negative) mg/dL Urine Blood (Negative) Urine Nitrite (Negative) Urine Bilirubin (Negative) Urine Urobilinogen (<2.0) mg/dL Ur Leukocyte Esterase (Negative) Urine WBC (Auto) (0.0-6.0) /HPF Urine RBC (Auto) (0.0-6.0) /HPF U Epithel Cells (Auto) (0-13.0) /HPF Urine Mucus /HPF Salicylates (2.8-20.0) mg/dL Acetaminophen (10.0-30.0) ug/mL Plasma/Serum Alcohol (0-0.07) % 10/11/19 10/11/19 10/11/19 Range/Units 09:35 09:35 09:35 WBC (4.5-11.0) K/mm3 RBC (3.65-5.03) M/mm3 Hgb (10.1-14.3) gm/dl Hct (30.3-42.9) % MCV (79-97) fl MCH (28-32) pg MCHC (30-34) % RDW (13.2-15.2) % Plt Count (140-440) K/mm3 Sodium (137-145) mmol/L Potassium (3.6-5.0) mmol/L Chloride (98-107) mmol/L Carbon Dioxide (22-30) mmol/L Anion Gap mmol/L BUN (7-17) mg/dL Creatinine (0.7-1.2) mg/dL Estimated GFR ml/min BUN/Creatinine Ratio % Glucose (65-100) mg/dL Calcium (8.4-10.2) mg/dL Magnesium (1.7-2.3) mg/dL Total Bilirubin (0.1-1.2) mg/dL AST (5-40) units/L ALT (7-56) units/L Alkaline Phosphatase (35-129) units/L Total Creatine Kinase (30-135) units/L Total Protein (6.3-8.2) g/dL Albumin (3.9-5) g/dL Albumin/Globulin Ratio % HCG, Quant (0-4) mIU/mL Urine Color (Yellow) Urine Turbidity (Clear) Urine pH (5.0-7.0) Ur Specific [place] (1.003-1.030) Urine Protein (Negative) mg/dL Urine Glucose (UA) (Negative) mg/dL Urine Ketones (Negative) mg/dL Urine Blood (Negative) Urine Nitrite (Negative) Urine Bilirubin (Negative) Urine Urobilinogen (<2.0) mg/dL Ur Leukocyte Esterase (Negative) Urine WBC (Auto) (0.0-6.0) /HPF Urine RBC (Auto) (0.0-6.0) /HPF U Epithel Cells (Auto) (0-13.0) /HPF Urine Mucus /HPF Salicylates < 0.3 L (2.8-20.0) mg/dL Acetaminophen < 5.0 L (10.0-30.0) ug/mL Plasma/Serum Alcohol < 0.01 (0-0.07) % 10/11/19 Range/Units 11:33 WBC (4.5-11.0) K/mm3 RBC (3.65-5.03) M/mm3 Hgb (10.1-14.3) gm/dl Hct (30.3-42.9) % MCV (79-97) fl MCH (28-32) pg MCHC (30-34) % RDW (13.2-15.2) % Plt Count (140-440) K/mm3 Sodium (137-145) mmol/L Potassium (3.6-5.0) mmol/L Chloride (98-107) mmol/L Carbon Dioxide (22-30) mmol/L Anion Gap mmol/L BUN (7-17) mg/dL Creatinine (0.7-1.2) mg/dL Estimated GFR ml/min BUN/Creatinine Ratio % Glucose (65-100) mg/dL Calcium (8.4-10.2) mg/dL Magnesium (1.7-2.3) mg/dL Total Bilirubin (0.1-1.2) mg/dL AST (5-40) units/L ALT (7-56) units/L Alkaline Phosphatase (35-129) units/L Total Creatine Kinase (30-135) units/L Total Protein (6.3-8.2) g/dL Albumin (3.9-5) g/dL Albumin/Globulin Ratio % HCG, Quant (0-4) mIU/mL Urine Color Yellow (Yellow) Urine Turbidity Slightly-cloudy (Clear) Urine pH 6.0 (5.0-7.0) Ur Specific [place] 1.020 (1.003-1.030) Urine Protein <15 mg/dl (Negative) mg/dL Urine Glucose (UA) Neg (Negative) mg/dL Urine Ketones Tr (Negative) mg/dL Urine Blood Lg (Negative) Urine Nitrite Neg (Negative) Urine Bilirubin Neg (Negative) Urine Urobilinogen < 2.0 (<2.0) mg/dL Ur Leukocyte Esterase Neg (Negative) Urine WBC (Auto) 13.0 H (0.0-6.0) /HPF Urine RBC (Auto) 93.0 (0.0-6.0) /HPF U Epithel Cells (Auto) 9.0 (0-13.0) /HPF Urine Mucus 2+ /HPF Salicylates (2.8-20.0) mg/dL Acetaminophen (10.0-30.0) ug/mL Plasma/Serum Alcohol (0-0.07) % - EKG Data -: EKG Interpreted by Me EKG shows normal: sinus rhythm, axis, intervals, QRS complexes, ST-T waves Rate: bradycardia Critical care attestation.: If time is entered above; I have spent that time in minutes in the direct care of this critically ill patient, excluding procedure time. ED Disposition Clinical Impression: Nausea & vomiting, Marijuana use Disposition: DC-01 TO HOME OR SELFCARE Is pt being admited?: No Does the pt Need Aspirin: No Condition: Stable Additional Instructions: Advance diet as tolerated, avoid consumption of Motrin, ibuprofen, Naprosyn, Aleve, heavy and/or spicy foods. Take and nausea medications as needed and directed. Patient may take [id number] Tylenol, Pepcid as needed for abdominal pain. Strongly recommend that patient stopped smoking marijuana, and avoid secondhand exposure to marijuana, as the patient most likely has cannabinoid hyperemesis syndrome, which is abdominal pain, nausea, vomiting and cramping, secondary to cannabis consumption. Recommend patient follow up with a primary care doctor within the next 3-4 weeks. Return to emergency room right away with new, worsening or different symptoms, or symptoms not present on the initial emergency room evaluation. Referrals: SHERIF FOX MD [Primary Care Provider] - 3-5 Days [facility] [Provider Group] - 3-5 Days [facility] [Provider Group] - 3-5 Days
[2019-10-11 10:57] LABS: Hematocrit 38.9 % (30.3-42.9); Hemoglobin 13.4 gm/dl (10.1-14.3); Mean Corpuscular HGB Conc 35 % (30-34); Mean Corpuscular Volume 93 fl (79-97); Platelet Count 309 K/mm3 (140-440); Red Cell Distribution Width 13.6 % (13.2-15.2)
[2019-10-11 11:07] LABS: Alanine Aminotransferase 14 units/L (7-56); Albumin 4.3 g/dL (3.9-5); BUN/Creatinine Ratio 13; Blood Urea Nitrogen 8 mg/dL (7-17); Calcium 9.9 mg/dL (8.4-10.2); Hemolysis Index 3
[2019-10-11] MEDS ORDERED: HALOPERIDOL LACTATE 5 MG/1 ML INJ IM STA (11:18)
[2019-10-11] MEDS ORDERED: PROMETHAZINE 25 MG TAB PO ONE (12:19)
[2019-10-11 12:22] VITALS: BP 121/61
[2019-10-11 13:21] LABS: Bilirubin,Urine NEG (Negative); Blood,Urine LG (Negative); Color,Urine Yellow (Yellow); Mucus,Urine 2+ /HPF; Protein,Urine <15 mg/dL mg/dL (Negative); Urobilinogen,Urine < 2.0 mg/dL (<2.0)
== END 2019-10-11 14:05 | disposition left against medical advice (07) ==
LOC: ED 09:04
DX: R11.2 Nausea with vomiting, unspecified (principal); F12.10 Cannabis abuse, uncomplicated; G40.909 Epilepsy, unspecified, not intractable, without status epilepticus; Z79.899 Other long term (current) drug therapy
CPT/HCPCS: 36415; 80053; 81001; 82550; 83735; 84702; 85027; 87086; 93005; 93010; 96372; 96374; 96375; 99284; J1200; J1630; J2405; Q0169; 80320; G0480